=== PATIENT | male | born 1985 | race African-American/Black ===

== ENCOUNTER 2019-05-02 01:19 | Emergency (ER) | payer MEDICAID, OTHER ==
[~2019-05-02] VITALS: Ht 185.4 cm; Wt 85.3 kg
[2019-05-02] MEDS ORDERED: HYDROCODONE/APAP 5/325MG 1 EACH TABLET ONE (01:30)
[2019-05-02] MEDS ORDERED: HYDROCODONE/APAP 5/325MG 1 EACH TABLET PO ONE (01:30)
--- NOTE | 2019-05-02 01:45 | NUR ---
XRAY AT BEDSIDE
--- NOTE | 2019-05-02 03:35 | NUR ---
Patient discharged to home in stable condition. RX and Written and verbal after care instructions given. Patient verbalizes understanding of instruction.
--- NOTE | 2019-05-02 03:35 | NUR ---
PT WAS PEOVIDED W/ R SHOULDER SLING,
[2019-05-02 03:36] VITALS: BP 147/72
== END 2019-05-02 03:37 | disposition home or self-care (01) ==
LOC: ER 01:21
DX: S40.011A Contusion of right shoulder, initial encounter (principal); V49.49XA Driver injured in collision with other motor vehicles in traffic accident, initial encounter; Y93.89 Activity, other specified; Y92.413 State road as the place of occurrence of the external cause; Y99.8 Other external cause status
CPT/HCPCS: 73030-TC